=== PATIENT | female | born 2000 | race Caucasian/White ===

== ENCOUNTER 2023-05-17 11:32 | Emergency (ER) | payer OTHER, SELFPAY ==
[2023-05-17 11:46] VITALS: BP 158/88; PULSE 91; RESP 18; TEMP 36.9; O2SAT 98; BMI 33.9
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
[2023-05-17] MEDS: ONDANSETRON 4 MG ODT SL (14:07)
[2023-05-17 15:35] VITALS: BP 136/72; PULSE 76; RESP 16; O2SAT 99
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
== END 2023-05-17 15:56 | disposition home or self-care (01) ==
PROVIDERS: Emergency Provider Student in an Organized Health Care Education/Training Program
DX: R51.9 Headache, unspecified (principal); M54.2 Cervicalgia; M54.6 Pain in thoracic spine; V44.6XXA Car passenger injured in collision with heavy transport vehicle or bus in traffic accident, initial encounter; Y99.0 Civilian activity done for income or pay
CPT/HCPCS: 72040; 72072; 99283

== ENCOUNTER 2023-09-02 11:13 | Emergency (ER) | payer OTHER, SELFPAY ==
[2023-09-02 11:15] VITALS: BP 157/87; PULSE 84; RESP 16; TEMP 36.3; O2SAT 100; BMI 33.6
--- NOTE | 2023-09-02 14:09 | ED.SEIZURE ---
HPI - Seizure General Chief Complaint: Seizure Stated Complaint: missed seizure meds, had seizure today Time Seen by Provider: 09/02/23 13:10 Source: patient Mode of arrival: Ambulatory History of Present Illness HPI Narrative: 23-year-old female with history of seizure disorder on 750 mg b.i.d. of Keppra presents for breakthrough seizures. Patient states she missed 3 doses of her antiseizure medications and had 2 seizures yesterday and a seizure earlier this morning. She was instructed by her neurologist office to come to the ER for evaluation. Patient states that she took her Keppra dose this morning prior to arrival. Has been in her usual state of health, has been under lot of stress recently due to illness with her family dog, otherwise denies complaints. Patient states that these events feels similar to her usual seizures. Related Data Home Medications Medication Instructions Recorded Confirmed aripiprazole 5 mg tablet 5 mg PO DAILY 09/02/23 09/02/23 clonidine HCl 0.3 mg tablet 0.3 mg PO DAILY 09/02/23 09/02/23 levetiracetam 750 mg tablet 750 mg PO BID 09/02/23 09/02/23 sertraline 100 mg tablet 100 mg PO BID 09/02/23 09/02/23 Allergies Allergy/AdvReac Type Severity Reaction Status Date / Time No Known Drug Allergies Allergy Verified 09/02/23 11:18 Patient History Social History Smoking Status: Never smoker Smoking Status: Never smoker alcohol intake frequency: other Substance Use Type: marijuana Exam Initial Vital Signs Initial Vital Signs: Vital Signs Temperature 97.3 F L 09/02/23 11:15 Pulse Rate 84 09/02/23 11:15 Respiratory Rate 16 09/02/23 11:15 Blood Pressure 157/87 H 09/02/23 11:15 Pulse Oximetry 100 09/02/23 11:15 Oxygen Delivery Method Room Air 09/02/23 11:15 Const: Awake, alert, no acute distress, nontoxic appearing Cardiac: regular rate, regular rhythm RESP: unlabored, clear bilaterally, no wheezing GI: Soft, nontender, nondistended, no rebound, no guarding MSK: Atraumatic, full range of motion, pulses equal Skin: Warm, Dry, intact, no rashes Neuro: AO x3, CN II-XII grossly intact, moves all extremities Course Orders Ordered: ED Orders 09/02/23 14:31 CBC Auto Diff [Complete Blood Count AUTO DIFF] Stat CMP [Comprehensive Metabolic Panel] Stat Discontinued Medications Levetiracetam 2,950 mg/ Sodium (Chloride) 129.5 mls @ 518 mls/hr IV NOW ONE Stop: 09/02/23 14:10 Last Infusion: 09/02/23 14:48 Dose: Infused Documented By: Admin: 09/02/23 14:23 Dose: 518 mls/hr Documented By: CLARENCE Sodium Chloride (Normal Saline 0.9%) 1,000 mls @ 1,000 mls/hr IV BOLUS ONE Stop: 09/02/23 15:08 Last Admin: 09/02/23 14:23 Dose: 1,000 mls/hr Documented By: CLARENCE Vital Signs Vital signs: Vital Signs - 8 hr 09/02/23 11:15 09/02/23 14:16 09/02/23 14:16 Temperature 97.3 F L Pulse Rate 84 82 Respiratory Rate 16 Blood Pressure 157/87 H 120/72 Pulse Oximetry 100 100 Oxygen Delivery Method Room Air 09/02/23 14:30 09/02/23 14:37 09/02/23 14:37 Temperature Pulse Rate 64 65 Respiratory Rate 10 L Blood Pressure 133/78 Pulse Oximetry 100 100 Oxygen Delivery Method 09/02/23 15:00 09/02/23 15:00 Temperature Pulse Rate 74 Respiratory Rate 18 Blood Pressure 131/71 Pulse Oximetry 100 Oxygen Delivery Method MDM - Seizure Differential Diagnosis Differential diagnosis: Likely intractable seizure disorder, febrile convulsion and focal seizure Lab Data 09/02/23 14:31 09/02/23 14:31 Labs: Lab Results 09/02/23 Range/Units 14:31 WBC 11.7 H (4.5-11.0) X10^3/uL RBC 4.99 (4.0-5.2) X10^6/uL Hgb 14.3 (12.0-16.0) g/dL Hct 42.9 (36-46) % MCV 85.9 (80-100) fL MCH 28.7 (26-34) PG MCHC 33.4 (30-36) % RDW 13.4 (11.6-14.8) % Plt Count 263 (150-400) X10^3/uL Neut % (Auto) 72.4 (50-75) % Lymph % (Auto) 20.2 L (25-40) % [place] % (Auto) 5.7 (3-14) % Eos % (Auto) 1.0 L (2-4) % Baso % (Auto) 0.7 (0-2) % Neut # (Auto) 8500 H (5559-0876) /uL Lymph # (Auto) 2400 (9272-3819) /uL [place] # (Auto) 700 (0-900) /uL Eos # (Auto) 100 (0-450) /uL Baso # (Auto) 100 (0-100) /uL Sodium 139 (137-145) mmol/L Potassium 3.9 (3.4-5.1) mmol/L Chloride 107 (98-107) mmol/L Carbon Dioxide 25 (22-32) mmol/L BUN 8 (7-17) mg/dL Creatinine 0.82 (0.52-1.04) mg/dL Estimated GFR > 60 (>60) mL/min BUN/Creatinine Ratio 9.8 (6-22) Glucose 91 (70-100) mg/dL Calcium 9.4 (8.4-10.2) mg/dL Total Bilirubin 0.6 (0.2-1.3) mg/dL AST 24 (14-36) IU/L ALT 16 (<35) IU/L Alkaline Phosphatase 76 (38-126) U/L Total Protein 7.9 (6.3-8.2) g/dL Albumin 4.7 (3.5-5.0) g/dL Globulin 3.2 (1.7-4.1) g/dL Albumin/Globulin Ratio 1.5 (1.0-2.8) Point of Care Testing Test Results Negative Urine Dip Bedside Urine Glucose Negative Bedside Urine Bilirubin - Negative Bedside Urine Ketone - Negative Urine Specific [place] 1.01 Bedside Urine Occult Blood - Negative Bedside Urine pH 8.0 Bedside Urine Protein - Negative Bedside Urine Urobilinogen - Negative Bedside Urine Nitrite - Negative Bedside Urine Leukocytes - Negative Esterase MDM Narrative Medical decision making narrative: Breakthrough seizures after missing several medication doses. Laboratory work negative for acute findings. Patient given 30 milligrams/kilogram loading dose of Keppra. Patient counseled on neurology follow up. States she was not need refills of her medications. Discharge Plan Departure Patient Disposition: Home Clinical Impression: Seizure disorder, Medication dose missed Instructions: DI for Seizure Disorder -- Adult Activity Restrictions/Additional Instructions: Continue to take your Keppra as prescribed. Follow up if needed with your neurologist. Prescriptions: No Action clonidine HCl 0.3 mg tablet 0.3 mg PO DAILY sertraline 100 mg tablet 100 mg PO BID levetiracetam 750 mg tablet 750 mg PO BID aripiprazole 5 mg tablet 5 mg PO DAILY Referrals: Miscellaneous,Doctor, MD [Primary Care Provider] - Stand Alone Forms: Patient Portal/API, Work Release Note
[2023-09-02 14:16] VITALS: BP 120/72; PULSE 82; O2SAT 100
[2023-09-02] MEDS: LEVETIRACETAM IV (14:23)
[2023-09-02] MEDS: SODIUM CHLORIDE 0.9% 1,000 ML 1000 ML IV (14:23)
[2023-09-02] MEDS: SODIUM CHLORIDE 0.9% IV (14:23)
[2023-09-02 14:30] VITALS: PULSE 64; O2SAT 100
[2023-09-02 14:37] VITALS: BP 133/78; PULSE 65; RESP 10; O2SAT 100
[2023-09-02 15:00] VITALS: BP 131/71; PULSE 74; RESP 18; O2SAT 100
[2023-09-02 15:21] LABS: Add Manual Diff / Slide Review NO; Basophils Absolute Auto 100 /uL (0-100); Basophils Percent Auto 0.7 % (0-2); Eosinophils Absolute Auto 100 /uL (0-450); Hematocrit 42.9 % (36-46); Hemoglobin 14.3 g/dL (12.0-16.0); Lymphocytes Absolute Auto 2400 /uL (1100-4500); Lymphocytes Percent Auto 20.2 % (25-40); Mean Corpuscular HGB Conc 33.4 % (30-36); Mean Corpuscular Hemoglobin 28.7 PG (26-34); Mean Corpuscular Volume 85.9 fL (80-100); Monocytes Absolute Auto 700 /uL (0-900); Monocytes Percent Auto 5.7 % (3-14); Neutrophils Absolute Auto 8500 /uL (1500-7000); Neutrophils Percent Auto 72.4 % (50-75); Platelet Count 263 X10^3/uL (150-400); Red Blood Cell Count 4.99 X10^6/uL (4.0-5.2); Red Cell Distribution Width 13.4 % (11.6-14.8); White Blood Cell Count 11.7 X10^3/uL (4.5-11.0)
[2023-09-02 15:31] LABS: Alanine Aminotransferase 16 IU/L (<35); Albumin 4.7 g/dL (3.5-5.0); Albumin Globulin Ratio 1.5 (1.0-2.8); Alkaline Phosphatase 76 U/L (38-126); Aspartate Aminotransferase 24 IU/L (14-36); BUN Creatinine Ratio 9.8 (6-22); Bilirubin Total 0.6 mg/dL (0.2-1.3); Blood Urea Nitrogen 8 mg/dL (7-17); Calcium 9.4 mg/dL (8.4-10.2); Carbon Dioxide 25 mmol/L (22-32); Chloride 107 mmol/L (98-107); Estimated Glomerular Filt Rate > 60 mL/min (>60); Globulin 3.2 g/dL (1.7-4.1); Glucose 91 mg/dL (70-100); HEMOLYSIS < 15 (0-50); Potassium 3.9 mmol/L (3.4-5.1); Sodium 139 mmol/L (137-145); Total Protein 7.9 g/dL (6.3-8.2)
--- NOTE | 2023-09-02 15:48 | PC.NURSE ---
Pt states she had 2 days of multiple seizures. Pt states she has had missed 3 doses of seizure medications. No seizures witnessed today in ER. Pt denies biting tongue/or any injuries.
[2023-09-02 15:50] VITALS: BP 124/70; PULSE 71; RESP 19; TEMP 37.1; O2SAT 99
== END 2023-09-02 15:51 | disposition home or self-care (01) ==
PROVIDERS: Emergency Provider Emergency Medicine
DX: G40.909 Epilepsy, unspecified, not intractable, without status epilepticus (principal); Z91.138 Patient's unintentional underdosing of medication regimen for other reason
CPT/HCPCS: 36415; 80053; 81003; 81025; 85025; 96365; 99284; J1953

== ENCOUNTER 2023-09-11 08:26 | Emergency (ER) | payer OTHER, MEDICAID, SELFPAY ==
--- NOTE | 2023-09-11 08:32 | ED_ITS ---
HPI - Seizure General Chief Complaint: Seizure Stated Complaint: seizure activity two days Time Seen by Provider: 09/11/23 08:30 History of Present Illness HPI Narrative: Patient is a 23-year-old female past medical history of seizures presents to the ED today for possible seizure-like activity. She states that she has just been feeling anxious, scared, feels like she is having diffuse numbness throughout her body, she states that this is similar to when she has seizures. She states that she has been compliant with all her medications since she was seen here previously. She states that she is not sure if these are psychogenic or not but does follow with Neurology, she states that she does not have a follow-up appointment in the next several months. States that she was recently changed on her Keppra dose from 500-750 several weeks ago. She has not complaining of any other symptoms such as headache visual disturbances chest pain shortness of breath fever chills nausea vomiting abdominal pain or any other GI/ symptoms at this time. No trauma no falls not on any blood thinners Review of records show the patient was seen for similar symptoms. Does have history of seizure disorders on 750 mg b.i.d. of Keppra who at that time missed 3 doses and had 2 witnessed seizures. At that time patient had negative lab work, she was given 30 mix per kg Keppra and discharged home with outpatient follow-up Related Data Home Medications Medication Instructions Recorded Confirmed aripiprazole 5 mg tablet 5 mg PO DAILY 09/02/23 09/02/23 clonidine HCl 0.3 mg tablet 0.3 mg PO DAILY 09/02/23 09/02/23 levetiracetam 750 mg tablet 750 mg PO BID 09/02/23 09/02/23 sertraline 100 mg tablet 100 mg PO BID 09/02/23 09/02/23 Allergies Allergy/AdvReac Type Severity Reaction Status Date / Time No Known Drug Allergies Allergy Verified 09/02/23 11:18 Review of Systems Review of Systems Narrative: HEENT: Denies headache, eye drainage, eye irritation, head trauma, sore throat, voice change Cardiovascular: Denies any chest pain, palpitations, shortness of breath, tachycardia Respiratory: Denies any shortness of breath, cough, wheeze, stridor GI/: Denies any abdominal pain, nausea, vomiting, diarrhea, bright red blood per rectum, melanotic stools, urinary frequency, urinary retention, dysuria, hematuria MSK: Denies any joint pain, muscle pains, swelling Skin: Denies any rashes, lesions, discoloration Neuro: Denies any headache, lightheadedness, dizziness, fainting, weakness, Positive seizures Psych: Denies SI/HI Patient History Social History Smoking Status: Never smoker Smoking Status: Never smoker alcohol intake frequency: other Substance Use Type: marijuana Exam Narrative Exam Narrative: General: Cooperative, comfortable, well-developed, not in acute distress HEENT: Normocephalic, atraumatic, PERRLA, normal sclera, eyelids normal, Neck: Active full range of motion, atraumatic Chest: Normal to inspection, negative crepitus, no overlying erythema ecchymosis Respiratory: Normal respiratory effort, not in acute respiratory distress, clear to auscultation bilaterally negative cough, wheeze, tachypnea, rhonchi, rales Cardiology: Regular rate rhythm negative gallop, murmur, rubs GI/: Normal to inspection, soft, nonrigid, no tenderness to palpation, exam deferred MSK: Full range of active range of motion of all 4 extremities, atraumatic Skin: No rashes lesions noted Neuro: Alert awake oriented x3, moves all 4 extremities spontaneously, cranial nerves intact, able to answer all questions appropriately follows commands appropriately Psych: Cooperative, negative suicidal or homicidal ideations Initial Vital Signs Initial Vital Signs: Vital Signs Temperature 98.5 F 09/11/23 08:36 Pulse Rate 93 H 09/11/23 08:36 Respiratory Rate 18 09/11/23 08:36 Blood Pressure 147/93 H 09/11/23 08:36 Pulse Oximetry 96 09/11/23 08:36 Oxygen Delivery Method Room Air 09/11/23 08:36 Course Orders Ordered: ED Orders 09/11/23 08:49 Urinalysis Screen (Dip Only) Stat Urine Drug Screen, Rapid Stat 09/11/23 09:05 BMP [Basic Metabolic Panel] Stat CBC No Diff [Complete Blood Count NO DIFF] Stat MAG [Magnesium] Stat Vital Signs Vital signs: Vital Signs - 8 hr 09/11/23 08:36 09/11/23 08:36 09/11/23 08:48 Temperature 98.5 F Pulse Rate 93 H 93 H 89 Respiratory Rate 18 15 14 Blood Pressure 147/93 H Pulse Oximetry 96 98 97 Oxygen Delivery Method Room Air 09/11/23 08:48 09/11/23 09:00 09/11/23 09:30 Temperature Pulse Rate 75 70 Respiratory Rate 13 18 Blood Pressure 130/83 Pulse Oximetry 98 98 Oxygen Delivery Method 09/11/23 10:00 Temperature Pulse Rate 66 Respiratory Rate 20 Blood Pressure Pulse Oximetry 98 Oxygen Delivery Method MDM - Seizure Differential Diagnosis Differential diagnosis: Likely focal seizure and generalized seizure Condition is:: Improved Lab Data 09/11/23 09:05 09/11/23 09:05 Labs: Lab Results 09/11/23 09/11/23 09/11/23 Range/Units 08:49 08:49 09:05 WBC 8.5 (4.5-11.0) X10^3/uL RBC 5.00 (4.0-5.2) X10^6/uL Hgb 14.6 (12.0-16.0) g/dL Hct 43.1 (36-46) % MCV 86.2 (80-100) fL MCH 29.2 (26-34) PG MCHC 33.8 (30-36) % RDW 13.3 (11.6-14.8) % Plt Count 240 (150-400) X10^3/uL Sodium 138 (137-145) mmol/L Potassium 3.8 (3.4-5.1) mmol/L Chloride 105 (98-107) mmol/L Carbon Dioxide 26 (22-32) mmol/L BUN 13 (7-17) mg/dL Creatinine 0.80 (0.52-1.04) mg/dL Estimated GFR > 60 (>60) mL/min BUN/Creatinine Ratio 16.3 (6-22) Glucose 103 H (70-100) mg/dL Calcium 9.6 (8.4-10.2) mg/dL Magnesium 2.0 (1.6-2.3) mg/dL Urine Color Yellow Urine Appearance Clear Urine pH 7.0 Normal (4.5-8.0) Ur Specific [place] 1.020 (1.000-1.035) Urine Protein Negative (Negative) Urine Glucose (UA) Negative (Negative) g/dL Urine Ketones Negative (NEGATIVE) Urine Occult Blood Negative (Negative) Urine Nitrate Negative (Negative) Urine Bilirubin Negative (NEGATIVE) Urine Urobilinogen 0.2 (0.2) E.U./dL Ur Leukocyte Esterase Negative (NEGATIVE) U Opiates 300ng/mL cut Negative (Negative) Ur Oxycodone Screen Negative (Negative) Urine Methadone Screen Negative (Negative) Ur Barbiturates Screen Negative (Negative) U Tricyclic Antidepress Negative (Negative) Ur Phencyclidine Scrn Negative (Negative) Ur Amphetamines Screen Negative (Negative) U Methamphetamines Scrn Negative (Negative) Ur MDMA Scrn (Ecstasy) Negative (Negative) U Benzodiazepines Scrn Negative (Negative) Urine Cocaine Screen Negative (Negative) U Marijuana (THC) Screen Positive H (Negative) Urine Specific [place] Normal (Normal) Ur Creatinine Normal (Normal) Point of Care Testing Test Results Negative Urine Dip Bedside Urine Glucose Negative Bedside Urine Bilirubin - Negative Bedside Urine Ketone - Negative Urine Specific [place] 1.020 Bedside Urine Occult Blood - Negative Bedside Urine pH 6.5 Bedside Urine Protein - Negative Bedside Urine Urobilinogen - Negative Bedside Urine Nitrite - Negative Bedside Urine Leukocytes - Negative Esterase MDM Narrative Medical decision making narrative: Patient is a 23-year-old female with a past medical history of seizures presents to the ED for possible seizure-like activity, states that she has been compliant with her antiseizure medications which is 750 mg Keppra b.i.d., several days ago was seen here for medication noncompliance, she states that she is feeling tingling sensations all over which she has not sure if she is having seizures or not. She states that this is similar to when she was diagnosed with seizures but somewhat different because it was only on 1 side previously. She does not know if this is due to stress. She states that she does have a follow-up appointment with her neurologist in a few weeks. lab work/workup unremarkable at this time. patient without any seizure-like activity while seen here safe for discharge home with outpatient follow-up Discharge Plan Departure Patient Disposition: Home Clinical Impression: Seizure disorder Activity Restrictions/Additional Instructions: Please follow-up with your neurologist for continued evaluation treatment of your known seizure disorders Please read the discharge instructions sheet carefully and bring all papers to all doctor follow-up visits, as it may contain information that your doctor may want to see. Disease processes change and evolve, if your symptoms worsen or if you develop any new symptoms that are concerning to you please return for evaluation. Your evaluation today does not show any evidence of any life- threatening/serious illnesses requiring admission to the hospital or surgery. Please follow-up with your doctor for re-evaluation in approximately 1 day. Seek immediate medical attention for any worrisome symptoms. Prescriptions: No Action clonidine HCl 0.3 mg tablet 0.3 mg PO DAILY sertraline 100 mg tablet 100 mg PO BID levetiracetam 750 mg tablet 750 mg PO BID aripiprazole 5 mg tablet 5 mg PO DAILY Referrals: Miscellaneous,Doctor, MD [Primary Care Provider] - Stand Alone Forms: Patient Portal/API
[2023-09-11 08:36] VITALS: BP 147/93; PULSE 93; RESP 15; RESP 18; TEMP 36.9; O2SAT 96; O2SAT 98; BMI 34.0
[2023-09-11 08:48] VITALS: BP 130/83; PULSE 89; RESP 14; O2SAT 97
[2023-09-11 09:00] VITALS: PULSE 75; RESP 13; O2SAT 98
[2023-09-11 09:13] LABS: Appearance Urine UA CLEAR; Bilirubin Urine UA NEGATIVE (NEGATIVE); Color Urine UA YELLOW; Glucose Urine UA NEGATIVE (Negative); Ketones Urine UA NEGATIVE (NEGATIVE); Leukocyte Esterase Urine UA NEGATIVE (NEGATIVE); Nitrite Urine UA NEGATIVE (Negative); Occult Blood Urine UA NEGATIVE (Negative); Protein Urine UA NEGATIVE (Negative); Urobilinogen Urine UA 0.2 E.U./dL (0.2)
[2023-09-11 09:13] LABS: Hematocrit 43.1 % (36-46); Hemoglobin 14.6 g/dL (12.0-16.0); Mean Corpuscular HGB Conc 33.8 % (30-36); Mean Corpuscular Hemoglobin 29.2 PG (26-34); Mean Corpuscular Volume 86.2 fL (80-100); Platelet Count 240 X10^3/uL (150-400); Red Cell Distribution Width 13.3 % (11.6-14.8); White Blood Cell Count 8.5 X10^3/uL (4.5-11.0)
[2023-09-11 09:29] LABS: BUN Creatinine Ratio 16.3 (6-22); Blood Urea Nitrogen 13 mg/dL (7-17); Calcium 9.6 mg/dL (8.4-10.2); Carbon Dioxide 26 mmol/L (22-32); Chloride 105 mmol/L (98-107); Estimated Glomerular Filt Rate > 60 mL/min (>60); Glucose 103 mg/dL (70-100); HEMOLYSIS < 15 (0-50); Potassium 3.8 mmol/L (3.4-5.1); Sodium 138 mmol/L (137-145)
[2023-09-11 09:30] VITALS: PULSE 70; RESP 18; O2SAT 98
[2023-09-11 09:31] LABS: UR Morphine/Opiate cutoff 300 Negative (Negative); Ur Creatinine Normal (Normal); Ur Specific Gravity Normal (Normal); Urine Amphetamines Negative (Negative); Urine Barbiturates Negative (Negative); Urine Cocaine Negative (Negative); Urine MDMA Negative (Negative); Urine Methamphetamines Negative (Negative); Urine Phencyclidine Negative (Negative); Urine Tetrahydrocannabinol Positive (Negative); Urine pH Normal (Normal)
[2023-09-11 09:32] LABS: Urine Benzodiazepines Negative (Negative); Urine Methadone Negative (Negative); Urine Oxycodone Negative (Negative); Urine Tricyclic Antidepressant Negative (Negative)
[2023-09-11 10:00] VITALS: PULSE 66; RESP 20; O2SAT 98
== END 2023-09-11 10:07 | disposition home or self-care (01) ==
PROVIDERS: Emergency Provider Student in an Organized Health Care Education/Training Program
DX: G40.909 Epilepsy, unspecified, not intractable, without status epilepticus (principal)
CPT/HCPCS: 80048; 80305; 81003; 81025; 83735; 85027; 99282; 99283